=== PATIENT | male | born 1955 | race Caucasian/White ===

== ENCOUNTER → 2021-12-20 13:01 | Outpatient (BNVA) | payer OTHER, SELFPAY | PROVIDERS: PCP Nurse Practitioner Family; Visit Provider Emergency Medicine | DX: M79.645 Pain in left finger(s) (principal) | CPT/HCPCS: 73130 ==

== ENCOUNTER → 2023-04-27 07:59 | Outpatient (BNVA) | payer OTHER, SELFPAY | PROVIDERS: Visit Provider Student in an Organized Health Care Education/Training Program | DX: M75.41 Impingement syndrome of right shoulder | CPT/HCPCS: 73030 ==

== ENCOUNTER 2023-05-17 06:56 | Outpatient (CLI) | payer OTHER, SELFPAY ==
--- NOTE | 2023-05-17 07:15 | MR_ITS ---
WS: [id number] MRI RIGHT SHOULDER HISTORY: rotator cuff impingement Prior surgery. COMPARISON: RIGHT shoulder radiograph 04/27/2023 TECHNIQUE: Multiplanar sequences of the shoulder joint are submitted. Severe AC joint arthritis. There is edema within the distal clavicle and acromion extending into the soft tissues. The AC ligament is not visualized. Mild distention of the capsule and ligaments. Mild e ncroachment upon the myotendinous portion of the supraspinatus. Very small amount of fluid in the sub acromial and subdeltoid bursa. Mild erosive changes distal clavicle. No os acromion. Biceps tendon in good position. Numerous micrometallic artifacts are noted in the soft tissues from prior surgery. No muscle atrophy or edema. There is mild fraying along the bursal and articular surfaces of the supr aspinatus tendon. No full-thickness tear. There is a very small area of increased T2 signal at the in sertion site of the supraspinatus which probably represents a very tiny insertion site tear of 3 to 4 mm. Mild narrowing of the glenohumeral joint. Mild subchondral cystic disease involving the humeral head at the site of the rotator cuff attachment. Mild intrasubstance degeneration within the labrum. No definite tear. There is a very small amount of intermediate signal in the superior labrum which ap pears degenerative and not a tear. There is a micrometallic artifact along the lateral side of the zuñiga bscapularis tendon. IMPRESSION: 1. Severe AC joint arthritis with marrow edema in the acromion and distal clavicle with small erosio ns in the distal clavicle. 2. Very tiny insertion site tear of the supraspinatus. 3. No muscle atrophy or edema. 4. Micrometallic artifact surrounding the shoulder from the prior surgery. One of the micrometallic artifacts abuts the distal subscapularis tendon.
== END 2023-05-17 06:57 | disposition home or self-care (01) ==
PROVIDERS: Visit Provider Student in an Organized Health Care Education/Training Program
DX: M75.41 Impingement syndrome of right shoulder (principal); M19.011 Primary osteoarthritis, right shoulder; M75.101 Unspecified rotator cuff tear or rupture of right shoulder, not specified as traumatic; Z98.890 Other specified postprocedural states
CPT/HCPCS: 73221